=== PATIENT | male | born 1955 | race Caucasian/White ===

== ENCOUNTER 2020-09-08 14:55 | Outpatient (CLI) | payer OTHER | END 2020-09-08 16:06 | disposition home or self-care (01) | LOC: LAB 14:55 | DX: Z20.828 Contact with and (suspected) exposure to other viral communicable diseases (principal) ==

== ENCOUNTER 2025-06-27 09:24 | Emergency (ER) | payer OTHER ==
[~2025-06-27] VITALS: Ht 175.3 cm; Wt 88.9 kg
[2025-06-27] MEDS ORDERED: ROSUVASTATIN CA10 MG PO (09:31)
[2025-06-27] MEDS ORDERED: LOSARTAN POTASS50 MG PO (09:31)
[2025-06-27] MEDS ORDERED: NORFLEX100MG PO (10:58)
[2025-06-27] MEDS ORDERED: DICLOFENAC SODI75 MG PO (10:58)
[2025-06-27] MEDS ORDERED: ORPHENADRINE CITRATE 100 MG TABLET PO ONE (11:15)
== END 2025-06-27 11:08 | disposition home or self-care (01) ==
LOC: ER 09:24
DX: S19.9XXA Unspecified injury of neck, initial encounter (principal); X58.XXXA Exposure to other specified factors, initial encounter; Y93.89 Activity, other specified; Y92.89 Other specified places as the place of occurrence of the external cause; Y99.8 Other external cause status; M54.2 Cervicalgia; I10 Essential (primary) hypertension